=== PATIENT | female | born 1970 | race Caucasian/White ===

== ENCOUNTER 2021-08-14 16:43 | Outpatient (REF) | payer MEDICAID, SELFPAY ==
--- NOTE | ~2021-08-14 | US_ITS ---
EXAMINATION: US PELVIS CLINICAL INFORMATION: Evaluate endometrium. IUD rejection. COMPARISON: None TECHNIQUE: Ultrasound of the pelvis is performed using both transabdominal and transvaginal transducers along with Doppler. Transvaginal imaging is performed due to inadequate visualization transabdominally. FINDINGS: Uterus: The uterus is anteverted and anteflexed and measures 4.0 x 2.1 x 3.2 cm. The double wall endometrial thickness is 0.2 mm. There is question of a few small echogenic foci present without focal mass. The uterus is smooth in contour and has normal myometrial echogenicity. No visible fibroid. There is no pelvic ascites or fluid collection. Right ovary not seen. Left ovary not seen. US/US pelvic complete IMPRESSION: Ovaries not identified. No evidence of endometrial thickening. These may represent small calcifications or region of fibrosis.
== END 2021-08-14 16:44 | disposition home or self-care (01) ==
LOC: HO.US 16:43
PROVIDERS: Visit Provider Advanced Practice Midwife
DX: Z30.431 Encounter for routine checking of intrauterine contraceptive device (principal)
CPT/HCPCS: 76856

== ENCOUNTER 2021-11-02 15:55 | Outpatient (REF) | payer MEDICAID, SELFPAY ==
--- NOTE | ~2021-11-02 | MM_ITS ---
EXAMINATION: MM SCREENING DIGITAL BREAST TOMOSYNTHESIS, BILATERAL CLINICAL INFORMATION: Screening. Asymptomatic. The lifetime risk of breast cancer based on the Tyrer-Cuzick Model is 6%. COMPARISON: Mammography: 03/04/2014 ([place]). TECHNIQUE: Digital breast tomosynthesis is performed in both the craniocaudal and mediolateral oblique views along with computer-aided detection (CAD). Synthesized 2D images are generated from the tomosynthesis. FINDINGS: There are scattered areas of fibroglandular density (ACR BI-RADS breast composition Category b). There are no significant masses, abnormal calcifications, or other abnormalities. Parenchymal pattern is similar to prior outside exam. The axilla and skin contours are unremarkable. MM/MM tomosynthesis screening BI IMPRESSION: No mammographic evidence of malignancy. ASSESSMENT: BI-RADS 1: Negative RECOMMENDATION: Routine annual mammography screening. This patient's information was entered into a reminder system with a target due date for their next mammogram.
== END 2021-11-02 15:56 | disposition home or self-care (01) ==
LOC: HO.MAMMO 15:55
PROVIDERS: PCP Family Medicine; Visit Provider Family Medicine
DX: Z12.31 Encounter for screening mammogram for malignant neoplasm of breast (principal)
CPT/HCPCS: 77063; 77067

== ENCOUNTER → 2021-12-07 12:55 | Outpatient (BNVA) | payer MEDICAID, SELFPAY | PROVIDERS: Visit Provider Advanced Practice Midwife | DX: Z30.09 Encounter for other general counseling and advice on contraception (principal) | CPT/HCPCS: 99202 ==

== ENCOUNTER 2022-02-14 12:49 | Outpatient (REF) | payer MEDICAID, SELFPAY ==
[2022-02-16 03:32] LABS: Follicle Stimulating Hormone 121.6 mIU/mL
== END 2022-02-14 12:50 | disposition home or self-care (01) ==
LOC: HO.LAB 12:49
PROVIDERS: PCP Family Medicine; Visit Provider Advanced Practice Midwife
DX: Z30.09 Encounter for other general counseling and advice on contraception (principal); N95.1 Menopausal and female climacteric states
CPT/HCPCS: 36415; 81025; 83001; 96372; 99212

== ENCOUNTER → 2022-04-18 14:56 | Outpatient (BNVA) | payer MEDICAID, SELFPAY | PROVIDERS: PCP Family Medicine; Visit Provider Obstetrics & Gynecology | DX: Z78.0 Asymptomatic menopausal state (principal) | CPT/HCPCS: 99212 ==

== ENCOUNTER 2025-08-04 13:32 | Outpatient (REF) | payer MEDICAID, SELFPAY ==
--- OUTSIDE RECORDS SUMMARY | 2025-07-30 13:00 | XMS_ITS | Encounter Summary ---
Author Organization [employer] Address [address] [place] [address] 7 [place] [address] Care Team Providers Care Mold Construction Supervisor Name Role Phone Modesto Chung CNP Primary Care Provider [phone] Reason for Referral * Imaging (Routine) - Closed Specialty Diagnoses / Procedures Referred By Loi alba Referred To Contact Radiology Diagnoses Encounter for screening mammogram for breast cancer Procedures BI Mammogram Screening Tomosynthesis Bilateral Modesto Chung CNP [address] [place] [address] Phone: tel: fax: [address] Phone: tel: fax: Referral ID Status Reason Start Date Expiration Date Visits Re quested Visits Authorized [id number] Closed 07/30/2025 07/30/2026 1 1 Encounter Details Date Type Department Care Team (Late st Contact Info) Description 07/30/2025 1:00 PM EDT Office Visit [facility] PEDS [address] [place] [address] Modesto Chung CNP [address] [place] [address] Encounter for physical examination (Primary Dx); Screening for colon cancer; Encounter for screening mammogram for breast cancer; Placentia of foot; Chronic migraine with aura without status migrainosus, not intractable; Herpes simplex infection; Gastroesophageal reflux disease without esophagitis; Post-menopausal Social History Tobacco Use Types Packs/Day Years Used Date Smoking Tobacco: Every Day Cigarettes 0.5 15 Tobacco Cessation:Ready to Q uit: Not Asked; Counseling Given: Not Answered Alcohol Use Standard Drinks/Week Comments Yes 2 (1 standard drink = 0.6 oz pur e alcohol) On occasion Depression Answer Date Recorded Patient Health Questionnaire-9 Score 6 07/30/2025 Patient Health Questionnaire-9 Score 6 07/30/2025 Last PHQ-9: Questionnaire Data Not on file 1 Housing Stability Answer Date Recorded What is your housing situation today? I have jewel juan 07/30/[address] you li ve. Do you have problems with any of the following? Pests such as bugs, ants, or mice 07/30/2025 Food Insecurity Answer Date Recorded Within the past 12 months, y ou worried that your food would run out before you got money to buy more: Sometimes True 2024 Within the past 12 months,th e food you bought just didn't last and you didn't have enough money to get more: Sometimes True 07/30/2025 Transportation Answer Date Recorded In the past 12 months, has l ack of transportation kept you from medical appts, meetings, work or from getting things needed for daily living? No 07/30/2025 Utilities Answer Date Recorded In the past 12 months, has t he electric, gas, oil or water company threatened to shut off services in your home? I am not sure 07/30/2025 Depression Answer Date Recorded Patient Health Questionnaire-2 Score 2 07/30/2025 Internet Access Answer Date Recorded Internet Access Q1 Yes 07/30/2025 Internet Access Q2 Not on file 07/30/2025 Comments No Sex and Gender Information Value Date Recorded Sex Assigned at Female 08/13/2022 10:24 AM EDT Legal Sex Female 10:24 AM EDT Gender Identity Female 08/13/2022 10:24 AM EDT Sexual Orientation Straight 08/13/2022 10 :24 AM EDT documented as of this encounter Last Filed Vital Signs Vital Sign Reading Time Taken Comments Blood Pressure 130/80 07/30/2025 1:03 PM EDT Pulse 78 07/30/2025 1:03 PM EDT Temperature 36.7 C (98.1 F) 07/30/2025 1:03 PM EDT Respiratory Rate 20 07/30/2025 1:03 PM EDT Oxygen Saturation 98% 07/30/2025 1:03 PM EDT Inhaled Oxygen Concentration - - Weight 69.4 kg (153 lb) 07/30/2025 1:03 PM EDT Height 167.6 cm (5' 6 ) 07/30/2025 1:03 PM EDT Body Mass Index 24.69 07/30/2025 1:03 PM EDT documented in this encounter Functional Status * Over the past 2 weeks, how often have you been bothered by any of the following problems? Question Answer Date of Assessment Author Patient Health Questionnaire -2 Score 2 07/30/2025 1:07 PM EDT Pedro Finch MA * Little interest or pleasure in doing things Answer Date of Assessment Author Several days 07/30/2025 1:07 PM EDT [employer] Ruby sawyer MA * Feeling down, depressed, or hopeless Answer Date of Assessment Author Several days 07/30/2025 1:07 PM EDT [employer] Ruby sawyer [place] * Trouble falling or staying asleep, or sleeping too much Answer Date of Assessment Author Several days 07/30/2025 1:07 PM EDT [employer] Ruby sawyer MA * Feeling tired or having little energy Answer Date of Assessment Author Several days 07/30/2025 1:07 PM EDT [employer] Ruby sawyer [place] * Poor appetite or overeating Answer Date of Assessment Author Several days 07/30/2025 1:07 PM EDT [employer] Ruby sawyer [place] * Feeling bad about yourself - or that you are a failure or have let yourself or your family down Answer Date of Assessment Author Several days 07/30/2025 1:07 PM EDT [employer] Ruby sawyer [place] * Trouble concentrating on things, such as reading the newspaper or watching television Answer Date of Assessment Author Not at all 07/30/2025 1:07 PM EDT [employer] Ruby sawyer MA * Moving or speaking so slowly that other people could have noticed? Or the opposite - being so fidgety or restless that you have been moving around a lot more than usual. Answer Date of Assessment Author Not at all 07/30/2025 1:07 PM EDT Ruby Brooks MA * Thoughts that you would be better off or hurting yourself in some way Answer Date of Assessment Author Not at all 07/30/2025 1:07 PM EDT Ruby Brooks MA * Patient Health Questionnaire-9 Score Answer Date of Assessment Author 6 07/30/2025 1:07 PM EDT Ruby Brooks MA * How difficult have these problems made it for you to do your work, take care of things at home, or get along with other people? Answer Date of Assessment Author Somewhat difficult 07/30/2025 1:07 PM EDT Ruby Mckeon MA * Over the last 2 weeks, how often have you been bothered by any of the following problems? Question Answer Date of Assessment Author Feeling nervous, anxious, or on edge 1 07/30/2025 1:06 PM EDT Pedro Finch MA Not being able to stop or control worrying 1 07/30/2025 1:06 PM EDT Pedro Finch MA Worrying too much about different things 1 07/30/2025 1:06 PM EDT Pedro Finch MA Trouble relaxing 1 07/30/2025 1:06 PM EDT Ruby Palacios MA Being so restless that it is hard to sit still 2 07/30/2025 1:06 PM EDT Pedro Finch MA Becoming easily annoyed or irritable 2 07/30/2025 1:06 PM EDT Pedro Finch MA Feeling afraid as if somethi ng awful might happen 0 07/30/2025 1:06 PM EDT Pedro Finch MA HUANG-7 Total Score 8 07/30/2025 1:06 PM EDT Ruby Finch MA documented as of this encounter Progress Notes * Modesto Chung CNP - 07/30/2025 1:00 PM EDT Subjective: Jemma Valentine is a 55 y.o. female who presents to the office for a new patient visit. Previous PCP unknown. Current concerns: Migraines: Reports history of migraines however reports that they have recurred and she is experiencing daily MOLINA with photosensitivity. Denies diplopia, worst MOLINA of life, increase in severity. Med refills: requesting valtrex for as needed recurrent therapy. Plantar wart on he right foot and corn in between her toes o her right foot. Reports areas are tender. Problem List[1] Surgical History[2] Family History[3] Social History Living situation:lives with father, 2 adult children Employment/Education: Diet/exercise: Substance use: -alcohol -tobacco: current smoker, she reports she has reduced the amount of cigarettes she smokes. She currently smokes 1/2 PPD. -opioids none Sexual activity: not at this time Mental health: Patient Health Questionnaire-9 Score: 6 (07/30/2025 1:07 PM) Patient Health Questionnaire-2 Score: 2 (07/30/2025 1:07 PM) Thoughts that you would be better off or hurting yourself in some way: Not at all (07/30/2025 1:07 PM) HUANG-7 Total Score: 8 (07/30/2025 1:06 PM) No LMP recorded. Patient is postmenopausal. Allergies[4] Review of Systems Vitals: 07/30/25 1303 BP: 130/80 BP Location: Left arm Patient Position: Sitting BP Cuff Size: Adult Pulse: 78 Resp: 20 Temp: 98.1 ??F (36.7 ??C) TempSrc: Oral SpO2: 98% Weight: 153 lb (69.4 kg) Height: 5' 6 (1.676 m) Physical Exam Constitutional: General: She is not in acute distress. Appearance: Normal appearance. She is not ill-appearing. HENT: Head: Normocephalic and atraumatic. Right Ear: Tympanic membrane, ear canal and external ear normal. There is no impacted cerumen. Left Ear: Tympanic membrane, ear canal and external ear normal. There is no impacted cerumen. Nose: No congestion or rhinorrhea. Mouth/Throat: Mouth: Mucous membranes are moist. Pharynx: No oropharyngeal exudate or posterior oropharyngeal erythema. Eyes: General: No scleral icterus. Right eye: No discharge. Left eye: No discharge. Extraocular Movements: Extraocular movements intact. Pupils: Pupils are equal, round, and reactive to light. Cardiovascular: Rate and Rhythm: Normal rate and regular rhythm. Pulses: Normal pulses. Heart sounds: Normal heart sounds. No murmur heard. No friction rub. No gallop. Pulmonary: Effort: Pulmonary effort is normal. No respiratory distress. Breath sounds: Normal breath sounds. No stridor. No wheezing, rhonchi or rales. Chest: Chest wall: No tenderness. Abdominal: General: Abdomen is flat. Bowel sounds are normal. There is no distension. Palpations: Abdomen is soft. There is no mass. Tenderness: There is no abdominal tenderness. There is no guarding. Musculoskeletal: General: Normal range of motion. Cervical back: Normal range of motion and neck supple. No tenderness. Right lower leg: No edema. Left lower leg: No edema. Lymphadenopathy: Cervical: No cervical adenopathy. Skin: General: Skin is warm and dry. Capillary Refill: Capillary refill takes less than 2 seconds. Neurological: General: No focal deficit present. Mental Status: She is alert and oriented to person, place, and time. Psychiatric: Mood and Affect: Mood normal. Behavior: Behavior normal. Thought Content: Thought content normal. Judgment: Judgment normal. Assessment & Plan Encounter for physical examination 1. Anticipatory guidance discussed. Specific topics reviewed: drugs, ETOH, and tobacco, importance of regular dental care, importance of regular exercise, importance of varied diet, minimize junk food, and sex; STD and prevention as appropriate. 2. Age appropriate screenings discussed Routine Screening and Health Maintenance Optometry: Yes Dentist: Yes BMD: reports history of DEXA scan a couple of years ago that was normal. She had this completed as she was on depo provera shot x 11 yrs. ASCVD risk: 55 y.o. female smoker Lab Review: orders written for new lab studies as appropriate; see orders Routine Cancer Screening Breast CA: due Cervical CA: up to date, last pap 06/2021- NILM- HPV neg, next due 06/2026. Colon CA: due Lung CA: Orders: Lipid Panel, Standard; Future Hepatic Function Panel; Future Basic Metabolic Panel; Future HIV-1/2 Antigen and Antibodies, Fourth Generation, with Reflexes; Future Hepatitis C Antibody with Reflex to HCV, RNA, Quantitative, Real-Time PCR; Future Multiple Vitamin (multivitamin) tablet; Take 1 tablet by mouth Once per day. Screening for colon cancer Orders: Cologuard?? colon cancer screening Encounter for screening mammogram for breast cancer Orders: BI Mammogram Screening Tomosynthesis Bilateral; Future Placentia of foot Prescription for salicylic acid sent Orders: salicylic acid 17 % gel; Apply one drop to cover corn or callus. Let dry. Repeat once or twice daily until corn is removed for up to 14 days. Chronic migraine with aura without status migrainosus, not intractable Will trial abortive and prophy therapy Advised pt to rtc if symptoms persist May consider brain MRI Orders: ibuprofen 800 MG tablet; Take 1 tablet (800 mg) by mouth Once daily as needed for mild pain or headaches for up to 10 days. topiramate (Topamax) 25 MG tablet; Take 1 tablet (25 mg) by mouth Once per day. Herpes simplex infection No current infection Provided refills for recurrence Orders: valACYclovir (Valtrex) 1 g tablet; TAKE ONE TABLET DAILY IF W/ RECURRENT EPISODE TAKE 1 TABLET FOR 5 DAYS Gastroesophageal reflux disease without esophagitis Stable Refills for med Orders: omeprazole (PriLOSEC) [address] capsule; Take 1 capsule (40 mg) by mouth before breakfast. Do not crush or chew. Post-menopausal Advised vitamin D supplement given pt is postmenopausal and history of depo injection x 11 yrs Orders: cholecalciferol (Vitamin D-3) 25 MCG (1000 UT) tablet; Take 1 tablet (25 mcg) by mouth Once per day. Current Medications[5] Immunization History Administered Date(s) Administered Influenza injectable quadrivalent preservative free 09/18/2021 Influenza, IIV3, injectable 08/04/2008 Pfizer Covid-19 Vaccine 12+ 02/02/2021, 02/23/2021 Pfizer Covid-19 Vaccine 12+ Bivalent 10/03/2022 TD (adult), 2 Lf tetanus toxoid, preservative free, adsorbed 06/26/2017 Follow up in about 2 months (around 09/29/2025) for f/u Headaches . [1] There is no problem list on file for this patient. [2] No past surgical history on file. [3] No family history on file. [4] No Known Allergies [5] Current Outpatient Medications Medication Sig Dispense Refill medroxyPROGESTERone (Depo-Provera) 150 MG/ML injection Inject into the muscle. norethindrone (Ortho Micronor) 0.35 MG tablet Take 1 tablet by mouth at bed time. cholecalciferol (Vitamin D-3) 25 MCG (1000 UT) tablet Take 1 tablet (25 mcg) by mouth Once per day.60 tablet 5 ibuprofen 800 MG tablet Take 1 tablet (800 mg) by mouth Once daily as needed for mild pain or headaches for up to 10 days. 10 tablet 2 Multiple Vitamin (multivitamin) tablet Take 1 tablet by mouth Once per day. 30 tablet 11 omeprazole (PriLOSEC) [address] capsule TAKE 1 CAPSULE BY MOUTH EVERY DAY BEFORE A MEAL omeprazole (PriLOSEC) [address] capsule Take 1 capsule (40 mg) by mouth before breakfast. Do not crush or chew. 90 capsule 3 salicylic acid 17 % gel Apply one drop to cover corn or callus. Let dry. Repeat once or twice dailyuntil corn is removed for up to 14 days. 7 g 0 topiramate (Topamax) 25 MG tablet Take 1 tablet (25 mg) by mouth Once per day. 30 tablet 11 valACYclovir (Valtrex) 1 g tablet TAKE ONE TABLET DAILY IF W/ RECURRENT EPISODE TAKE 1 TABLET FOR 5DAYS 30 tablet 11 No current facility-administered medications for this visit. documented in this encounter Plan of Treatment Scheduled Orders Name Type Priority Associated Diagnoses Orde r Schedule Lipid Panel, Standard Lab Routine Encounter for physical examination Expected: 07/30/2025 (Approximate), Expires: 07/30/2026 Hepatic Function Panel Lab Routine Encounter for physical examination Expected: 07/30/2025 (Approximate), Expires: 07/30/2026 Basic Metabolic Panel Lab Routine Encounter for physical examination Expected: 07/30/2025 (Approximate), Expires: 07/30/2026 HIV-1/2 Antigen and Antibodies, Fourth Generation, with Reflexes Lab Routine Encounter for physical examination Expected: 07/30/2025 (Approximate), Expires: 07/30/2026 Hepatitis C Antibody with Reflex to HCV, RNA, Quantitative, Real-Time PCR Lab Routine Encounter for physical examination Expected: 07/30/2025, Expires: 07/30/2026 BI Mammogram Screening Tomosynthesis Bilateral Imaging Routine Encounter for screening mammogram for breast cancer Expected: 07/30/2025, Expires: 09/29/2026 Cologuard colon cancer screening Lab Routine Screening for colon cancer Ordered: 07/30/2025 documented as of this encounter Visit Diagnoses Diagnosis Encounter for physical examination- Primary Screening for colon cancer Special screening for malignant neoplasms, colon Encounter for screening mammogram for breast cancer Placentia of foot Chronic migraine with aura without status migrainosus, not intractable Herpes simplex infection Herpes simplex without mention of complication Gastroesophageal reflux disease without esophagitis Esophageal reflux Post-menopausal Asymptomatic postmenopausal status (age-related) (natural) documented in this encounter Additional Health Concerns Assessment Noted Time PHQ-9 Depression Total Score: 6 07/30/20 1:07 PM EDT documented as of this encounter Care Teams Mold Construction Supervisor Relationship Specialty Start Date End Date Modesto Chung CNP [address] [place] [address] PCP - General Family Medicine 07/30/25 documented as of this encounter
--- OUTSIDE RECORDS SUMMARY | 2025-08-04 19:15 | XMS_ITS | Encounter Summary ---
Author Organization [employer] Address [address] [place] [address] 7 [place] [address] Care Team Providers Care Art Model Name Role Phone Mikaela Silver MD Primary Care Provider [phone] Modesto Chung CNP Primary Care Provider [phone] Encounter Details Date Type Department Care Team (Late st Contact Info) Description 02/27/2023 Orders Only [facility] MED [facility] PEDS [address] [place], [place] [phone] Quyen Mcgee LPN Social History Tobacco Use Types Packs/Day Years Used Date Smoking Tobacco: Never Assessed Comments Unknown Sex and Gender Information Value Date Recorded Sex Assigned at Female 08/13/2022 10:24 AM EDT Legal Sex Female 10:24 AM EDT Gender Identity Female 08/13/2022 10:24 AM EDT Sexual Orientation Straight 08/13/2022 10 :24 AM EDT documented as of this encounter Plan of Treatment Not on file documented as of this encounter Visit Diagnoses Not on filedocumented in this encounter Care Teams Art Model Relationship Specialty Start Date End Date Mikaela Silver MD [address] [place] [address] PCP - General Family Medicine 09/18/21 05/17/25 Modesto Chung CNP [address] [place] [address] PCP - General Family Medicine 07/30/25 documented as of this encounter
--- OUTSIDE RECORDS SUMMARY | 2025-08-04 19:15 | XMS_ITS | Encounter Summary ---
Author Organization [employer] Address [address] [place] [address] [address] [place] [address] Care Team Providers Care Machine Package Sealer Name Role Phone Mikaela Silver MD Primary Care Provider [phone] Modesto Chung CNP Primary Care Provider [phone] Reason for Visit * Reason Onset Date Comments New Patient 05/17/2025 Encounter Details Date Type Department Care Team (Late st Contact Info) Description 05/17/2025 Telephone [facility] MEDICINE [address] [place] [address] Mikaela Silver MD [address] [place], [place] [phone] New Patient Social History Tobacco Use Types Packs/Day Years Used Date Smoking Tobacco: Never Assessed Comments Unknown Sex and Gender Information Value Date Recorded Sex Assigned at Female 08/13/2022 10:24 AM EDT Legal Sex Female 10:24 AM EDT Gender Identity Female 08/13/2022 10:24 AM EDT Sexual Orientation Straight 08/13/2022 10 :24 AM EDT documented as of this encounter Miscellaneous Notes * Telephone Encounter - Piper Lewis - 05/17/2025 2:30 PM EDT Patient added to [facility] New Patient wait list as of 05-17-2025 * Telephone Encounter - Remington Croft - 05/17/2025 2:10 PM EDT TC from caller requesting NEW PATIENT visit . DX: N/A Medical Concern: N/A Insurance name: C3 Location: [facility] Demographic information updated documented in this encounter Plan of Treatment Not on file documented as of this encounter Visit Diagnoses Not on filedocumented in this encounter Care Teams Machine Package Sealer Relationship Specialty Start Date End Date Mikaela Silver MD [address] [place] [address] PCP - General Family Medicine 09/18/21 05/17/25 Modesto Chung CNP [address] [place] [address] PCP - General Family Medicine 07/30/25 documented as of this encounter
--- OUTSIDE RECORDS SUMMARY | 2025-08-04 19:15 | XMS_ITS | Encounter Summary ---
Author Organization [employer] Address [address] [place] [address] [place] [address] Care Team Providers Care Block Sealer Name Role Phone Mikaela Silver MD Primary Care Provider [phone] Modesto Chung CNP Primary Care Provider [phone] Reason for Visit * Reason Comments Med Refill Encounter Details Date Type Department Care Team (Late st Contact Info) Description 12/11/2023 Refill [facility] MEDICINE [address] [place] [address] Mikaela Silver MD [address] [place], [place] [phone] Social History Tobacco Use Types Packs/Day Years [...] on filedocumented in this encounter Care Teams Block Sealer Relationship Specialty Start Date End Date Mikaela Silver MD [address] [place] [address] PCP - General Family Medicine 09/18/21 05/17/25 Modesto Chung CNP [address] [place] [address] PCP - General Family Medicine 07/30/25 documented as of this encounter
--- OUTSIDE RECORDS SUMMARY | 2025-08-04 19:15 | XMS_ITS | Encounter Summary ---
Author Organization [employer] Address [address] [place] [address] 7 [place] [address] Care Team Providers Care Money Counter Name Role Phone Mikaela Silver MD Primary Care Provider [phone] Modesto Chung CNP Primary Care Provider [phone] Reason for Visit * Reason Comments Med Refill Encounter Details Date Type Department Care Team (Late st Contact Info) Description 01/19/2023 Refill [facility] MED & PEDS [address] [place], [place] [phone] Mikaela Silver MD [address] [place], [place] [phone] Social History Tobacco Use Types Packs/Day Years [...] on filedocumented in this encounter Care Teams Money Counter Relationship Specialty Start Date End Date Mikaela Silver MD [address] [place] [address] PCP - General Family Medicine 09/18/21 05/17/25 Modesto Chung CNP [address] [place] [address] PCP - General Family Medicine 07/30/25 documented as of this encounter
--- OUTSIDE RECORDS SUMMARY | 2025-08-04 19:15 | XMS_ITS | Encounter Summary ---
Author Organization [employer] Address [address] [place] [address] 7 [place] [address] Care Team Providers Care Progress Man Name Role Phone Mikaela Silver MD Primary Care Provider [phone] Modesto Chung CNP Primary Care Provider [phone] Reason for Visit * Reason Comments Med Refill Encounter Details Date Type Department Care Team (Late st Contact Info) Description 03/15/2024 Refill [facility] [address] [place], [place] [phone] Mikaela Silver MD [address] [place], [place] [phone] Social History Tobacco Use Types Packs/Day Years [...] on filedocumented in this encounter Care Teams Progress Man Relationship Specialty Start Date End Date Mikaela Silver MD [address] [place] [address] PCP - General Family Medicine 09/18/21 05/17/25 Modesto Chung CNP [address] [place] [id number] PCP - General Family Medicine 07/30/25 documented as of this encounter
--- OUTSIDE RECORDS SUMMARY | 2025-08-04 19:16 | XMS_ITS | Clinical Summary ---
Author Organization [employer] Address [address] [place] [address] 7[address] [place] [address] Care Team Providers Care Grants Analyst Name Role Phone Robert Chungmichealbecky GUS Primary Care Provider [phone] Allergies No known active allergies Medications omeprazole (PriLOSEC) [address] capsule TAKE 1 CAPSULE BY MOUTH EVERY DAY BEFORE A MEAL 11/23/19 23 Active norethindrone (Ortho Micronor) 0.35 MG tablet Take 1 tablet by mouth at bed time. 07/11/20 21 Active medroxyPROGESTE Brett (Depo-Provera) 150 MG/ML injection Inject into the muscle. 09/18/20 21 Active Multiple Vitamin (multivitamin) tabletIndicatio ns:Encounter for physical examination Take 1 tablet by mouth Once per day. 30 tablet 11 07/30/20 25 Active omeprazole (PriLOSEC) [address] capsuleIndicati ons:Gastroesoph ageal reflux disease without esophagitis Take 1 capsule (40 mg) by mouth before breakfast. Do not crush or chew. 90 capsule 3 07/30/20 25 Active valACYclovir (Valtrex) 1 g tabletIndicatio ns:Herpes simplex infection TAKE ONE TABLET DAILY IF W/ RECURRENT EPISODE TAKE 1 TABLET FOR 5 DAYS 30 tablet 11 07/30/20 25 Active ibuprofen 800 MG tabletIndicatio ns:Chronic migraine with aura without status migrainosus, not intractable Take 1 tablet (800 mg) by mouth Once daily as needed for mild pain or headaches for up to 10 days. 10 tablet 2 07/30/20 25 025 Active topiramate (Topamax) 25 MG tabletIndicatio ns:Chronic migraine with aura without status migrainosus, not intractable Take 1 tablet (25 mg) by mouth Once per day. 30 tablet 11 07/30/20 25 026 Active salicylic acid 17 % gelIndications: [place] of foot Apply one drop to cover corn or callus. Let dry. Repeat once or twice daily until corn is removed for up to 14 days. 7 g 07/30/20 25 Active cholecalciferol (Vitamin D-3) 25 MCG (1000 UT) tabletIndicatio ns:Post-menopau tg Take 1 tablet (25 mcg) by mouth Once per day. 60 tablet 5 07/30/20 25 Active omeprazole (PriLOSEC) [address] capsule TAKE 1 CAPSULE BY MOUTH EVERY DAY BEFORE A MEAL 90 capsule 1 02/28/20 23 025 Discontinued(Re order (will not trigger notification to Pharmacy)) buPROPion SR (Wellbutrin SR) 150 MG 12 hr tablet take 1 tablet PO BID 09/18/20 21 025 Discontinued Encounters Date Type Department Care Team Description 07/30/2025 1:00 PM EDT Office Visit [facility] [address] [place] [address] Modesto Chung CNP Encounter for physical examination (Primary Dx); Screening for colon cancer; Encounter for screening mammogram for breast cancer; [place] of foot; Chronic migraine with aura without status migrainosus, not intractable; Herpes simplex infection; Gastroesophageal reflux disease without esophagitis; Post-menopausal 07/30/2025 Travel 07/29/2025 Telephone [facility] [address] [place] [address] Inez Corft [place] Chart Prep 07/23/2025 Telephone [facility] [address] [place], [place] [phone] Mikaela Silver MD 05/18/2025 Telephone [facility] [address] [place] [address] Olayinka Gastelum MD 05/17/2025 Telephone [facility] [address] [place] [address] Mikaela Silver MD New Patient from Last 3 Months Immunizations Immunization Administration Dates Next Due Influenza injectable quadrivalent preservative f ree 09/18/2021 Influenza, IIV3, injectable 08/04/2008 TD (adult), 2 Lf tetanus tox oid, preservative free, adsorbed 06/26/2017 Social History Tobacco Use Types Packs/Day Years [...] your housing situation today? I have jewel martinez 07/30/[address] you li [...] Orientation Straight 08/13/2022 10 :24 AM EDT Last Filed Vital Signs Vital Sign Reading [...] Mass Index 24.69 07/30/2025 1:03 PM EDT Plan of Treatment Health Maintenance Due Date Last Done Comments CT Colonography 1972 Colonoscopy 1972 Colorectal Cancer Screening 1972 FIT DNA/Cologuard 1972 FIT 1972 FOBT 1972 HIV Screening 1972 Lipid Panel 1972 Sigmoidoscopy 1972 Hepatitis C Screening 1990 Hepatitis B Vaccines (1 of 3 - 19+ 3-dose series) 1991 Pneumococcal Vaccine: 50+ Years (1 of 2 - PCV) 1991 DTaP/Tdap/Td Vaccines (1 - Tdap) 06/27/2017 06/26/2017 Zoster Vaccines (1 of 2) 2022 Mammogram 11/02/2023 11/02/2021 COVID-19 Vaccine (4 - 2024-2 6 season) 2025 10/03/2022, 02/23/2021, 02/02/2021 Influenza Vaccine (#1) 2025 , 08/04/2008 Cervical Cancer Screening 07/04/2026 HPV/Cotest 07/04/2026 07/04/2021 Pap Smear 07/04/2026 07/04/2021 Alcohol/Substance Use Screening 07/30/2026 07/30/2025 Depression Screening 07/30/2026 07/30/2025, 07/30/2025 Disability Screening 07/30/2026 07/30/2025 SDOH Screening 07/30/2026 07/30/2025 Tobacco Screening 07/31/2026 07/31/2025 RSV Patients and Patients Aged 60 years or older (1 - 1-dose 75+ series) 2047 HIB Vaccines Aged Out No longer eligi ble based on patient's age to complete this topic HPV Vaccines Aged Out No longer eligi ble based on patient's age to complete this topic Hepatitis A Vaccines Aged Out No long er eligible based on patient's age to complete this topic IPV Vaccines Aged Out No longer eligi ble based on patient's age to complete this topic Meningococcal B Vaccine Aged Out No l onger eligible based on patient's age to complete this topic Meningococcal Vaccine Aged Out No digna lalo eligible based on patient's age to complete this topic RSV under 20 months Aged Out No longe r eligible based on patient's age to complete this topic Rotavirus Vaccines Aged Out No longer eligible based on patient's age to complete this topic Procedures Procedure Name Priority Date/Time Associated Diagnosis Comments MAMMOGRAM GENERIC Routine 11/02/2021 4:1 2 PM EST HPV MRNA E6/E7 Routine 07/04/2021 3:16 PM EDT THINPREP PAP Routine 07/04/2021 3:16 PM EDT from Last 3 Months or Most Recently Relevant to Health Maintenance Results * Mammography Report 1 (11/02/2021 4:12 PM EST) Anatomical Region Laterality Modality Breast Bilateral Mammography 11/02/2021 4:12 PM EST Narrative 11/17/2021 9:53 AM EST Refer to the Notes tab for result details [facility] Procedure: Mammography Report 1 Procedure Note Provider, Johnny, - 01/06/2023 Refer to the Notes tab for result details [facility] Procedure: Mammography Report 1 us Mikaela Silver MD IMG BI PROCEDURES Final Resul t * THINPREP PAP (07/04/2021 3:16 PM EDT) Clinical Information: None given [facility] COMMENT SEE COMMENT [facility] Comment: EXPLANATORY NOTE: The Pap is a screening test for cervical cancer. It is not a diagnostic test and is subject to false negative and false positive results. It is most reliable when a satisfactory sample, regularly obtained, is submitted with relevant clinical findings and history, and when the Pap result is evaluated along with historic and current clinical information. Debate Director : SEE COMMENT [facility] Comment: KN, CT(ASCP) CT screening location: [place] [address] Infection Shift in vaginal sean suggestive of bacterial vaginosis. [facility] Interpretation/R esult: Negative for intraepithelial lesion or malignancy. [facility] LMP: NONE [facility]IVEN [facility] Prev. BX: NONE [facility]IVEN [facility] Prev. PAP: NONE GIVEN [facility] SOURCE: None given [facility] Statement Of Adequacy: SEE COMMENT [facility] Comment: Satisfactory for evaluation. Endocervical/transformation zone component absent. Age and/or menstrual status not provided 07/04/2021 3:16 PM EDT Amrita España [facility] ORDERABLES Final Result [facility] [address] * HPV mRNA E6/E7 (07/04/2021 3:16 PM EDT) HPV nRNA E6/E7 Not Detected Not Detected [facility] Comment: Methodology: Senior Marketing Analyst-Mediated Amplification This assay detects E6/E7 viral messenger RNA (mRNA) from 14 high-risk HPV types (16,18,31,33,35,39,45,51,52,56,58,59,66,68). The analytical performance characteristics of this assay have been determined by [employer]. The modifications have not been cleared or approved by the FDA. This assay has been validated pursuant to the CLIA regulations and is used for clinical purposes. For additional information, please refer to http://education.[employer]ame/faq/GQH394v1 (This link if provided for information/ educational purposes only.) 07/04/2021 3:16 PM EDT us Amrita Patria [facility] ORDERABLES Mary gonzalez Result [facility] [address] from Last 3 Months or Most Recently Relevant to Health Maintenance [facility] Care Teams Grants Analyst Relationship Specialty Start Date End Date Modesto Chung CNP [address] [place] [address] PCP - General Family Medicine 07/30/25
--- OUTSIDE RECORDS SUMMARY | 2025-08-04 19:16 | XMS_ITS | Encounter Summary ---
Author Organization [employer] Address [address] [place] [address] 7t [place] [address] Care Team Providers Care Oil And Gas Superintendent Name Role Phone Mikaela Silver MD Primary Care Provider [phone] Modesto Chung CNP Primary Care Provider [phone] Reason for Visit * Reason Onset Date Comments Nurse Triage 08/20/2023 Encounter Details Date Type Department Care Team (Late st Contact Info) Description 08/20/2023 Telephone [facility] [address] [place] [address] Mikaela Silver MD [address] [place], [place] [phone] Nurse Triage Social History Tobacco Use Types Packs/Day Years Used Date Smoking Tobacco: Never Assessed Comments Unknown Sex and Gender Information Value Date Recorded Sex Assigned at Female 08/13/2022 10:24 AM EDT Legal Sex Female 10:24 AM EDT Gender Identity Female 08/13/2022 10:24 AM EDT Sexual Orientation Straight 08/13/2022 10 :24 AM EDT documented as of this encounter Miscellaneous Notes * Telephone Encounter - Danyell Ramos RN - 08/20/2023 12:41 PM EST Triage call Pt reports has just started a new job and can't miss work. Pt reports grandson was overwith a cold last week and Pt has symptoms of sinus infection at this time. Symptoms started 3 days ago, tactile low grade fever, sinus congestion, nasal congestion and sore throat. Pt has developed acough with greenish-yellow sputum produced. Neg for earache. Pt did do Covid home tests x2 yesterday last one done , both are negative. Advised Pt to come to [facility] today and Pt agrees with disposition and plan. Protocol Used: Sinus Pain or Congestion (Adult) Protocol-Based Disposition: See in Office or Video Visit Today Video visit not offered Positive Triage Question: * Sinus pain (not just congestion) and fever * All higher-acuity triage questions were negative Care Advice Discussed: * Reassurance and Education - Colds and Sinus Congestion * For a Runny Nose - Blow Your Nose * Hydration * Reasons To Call Back - Severe pain persists over 2 hours after pain medicine - Sinus pain persists over 1 day after using nasal washes - Sinus congestion (fullness) persists over 10 days - Fever lasts over 3 days - You become worse * Telephone Encounter - Sylvia Allen - 08/20/2023 11:43 AM EST Symptom: Sinus Symptoms Outcome: Schedule an urgent appointment (within 1 hour) or talk to a nurse or provider soon Reason: Any trouble breathing through the mouth The caller accepted this outcome documented in this encounter Plan of Treatment Not on file documented as of this encounter Visit Diagnoses Not on filedocumented in this encounter Care Teams Oil And Gas Superintendent Relationship Specialty Start Date End Date Mikaela Silver MD [address] [place] [address] PCP - General Family Medicine 09/18/21 05/17/25 Modesto Chung CNP [address] [place] [address] PCP - General Family Medicine 07/30/25 documented as of this encounter
--- OUTSIDE RECORDS SUMMARY | 2025-08-04 19:16 | XMS_ITS | Encounter Summary ---
Author Organization [employer] Address [address] [place] [address] Care Team Providers Care Replenishment Associate Name Role Phone Robert Chungmichealbecky GUS Primary Care Provider [phone] Encounter Details Date Type Department Care Team (Latest Contact Info) Description 07/30/2025 Travel Social History Tobacco Use Types Packs/Day Years Used Date Smoking Tobacco: Never Assessed Depression Answer Date Recorded Patient Health Questionnaire-9 [...] AM EDT documented as of this encounter Functional Status * Over the [...] [place] documented as of this encounter Plan of Treatment Not on file documented as of this encounter Visit Diagnoses Not on filedocumented in this encounter Additional Health Concerns Assessment Noted Time PHQ-9 Depression Total Score: 6 07/30/20 25 1:07 PM EDT documented as of this encounter Care Teams Replenishment Associate Relationship Specialty Start Date End Date Modesto Chung CNP [address] [place] [address] PCP - General Family Medicine 07/30/25 documented as of this encounter
[2025-08-04 19:29] LABS: Alanine Aminotransferase 17 U/L (0-31); Albumin Level 4.4 g/dL (3.5-5.0); Alkaline Phosphatase 96 U/L (39-117); Anion Gap 13 (12-20); Aspartate Amino Transferase 26 U/L (5-31); Blood Urea Nitrogen 8 mg/dL (9-16); Calcium 9.2 mg/dL (8.4-10.2); Carbon Dioxide 21 mmol/L (22-29); Chloride 109 mmol/L (96-108); Cholesterol 184 mg/dL (<200); Estimated Glomerular Filt Rate > 60; HDL Cholesterol 57 mg/dL (>40); Potassium 3.3 mmol/L (3.3-5.1); Sodium 140 mmol/L (135-145); Total Protein 7.3 g/dL (6.5-8.0); Triglycerides 82 mg/dL (<150)
[2025-08-05 04:09] LABS: HIV Num 1 0.06 S/CO (0.00-0.99); ~HepC Num1 0.18 S/CO (0.00-0.79); ~Hepatitis C Antibody Nonreactive (Nonreactive)
== END 2025-08-04 13:33 | disposition home or self-care (01) ==
LOC: HO.CHCLDS 13:32
DX: Z00.00 Encounter for general adult medical examination without abnormal findings (principal); Z11.4 Encounter for screening for human immunodeficiency virus [HIV]; Z11.59 Encounter for screening for other viral diseases
CPT/HCPCS: 36415; 80048; 80061; 80076; 86803; 87389